=== PATIENT | female | born 1990 | race Caucasian/White ===

== ENCOUNTER 2023-10-28 17:45 | Outpatient (REF) | payer OTHER, SELFPAY ==
--- NOTE | 2023-10-28 12:45 | SKI_PTH ---
PATIENT: Shelli De La Torre LOC: [facility] U#:[id number] AGE/SX: 33/F ROOM: RE10/28/[address]: MONSERRAT SCHAEFER : 1990 BED: DIS: 10/28/2023 SPEC #: [id number] RECD: 10/28/23 18:19 STATUS: SEVERIANO REQ #: [id number] FABBY: 10/28/23 12:[address]: MONSERRAT SCHAEFER DEPT: Surgical Specimen RECD BY: Connie Sandoval ENTERED: 10/28/23 18:20 SP TYPE: CHETAN HENDRICKSON DR: Unknown,Unknown Tissues: 1 - SKIN BIOPSY(SHAVE/PUNCH) Procedures: SKIN LEVEL 4 Comments: [id number]
== END 2023-10-28 17:46 | disposition home or self-care (01) ==
LOC: LBN 17:45
PROVIDERS: Visit Provider Nurse Practitioner Family
DX: L98.0 Pyogenic granuloma
CPT/HCPCS: 88305

== ENCOUNTER 2023-11-24 02:06 | Emergency (ER) | payer OTHER, SELFPAY ==
[2023-11-24 02:09] VITALS: O2SAT 98
--- NOTE | 2023-11-24 02:09 | ED.GENADUL_ITS ---
Discharge Plan Disposition Patient Disposition: Home Condition: Good Discharge Details Clinical Impression: Abscess of genital labia Primary Care Provider: Unknown,Unknown ED Provider: Chaz Reinoso Meds and New Rx's Prescriptions: No Action .Route omega 5-gos-jyr-fish oil [Fish Oil] 1,000 mg (120 mg-180 mg) capsule 1 cap PO DAILY cholecalciferol (vitamin D3) [Vitamin D3] 125 mcg (5,000 unit) tablet 5,000 unit PO DAILY Discharge Instructions Instructions: Abscess Incision and Drainage ED Additional Instructions: You were seen for pain and swelling and found to have an abscess which has been drained by allied health instructor. Follow up with Dr. Wolfe on Saturday as scheduled. Sitz baths, acetaminophen or ibuprofen for pain. Return to ED for severe worsening pain, fever, other concerns. Referrals: Sarina Wolfe MD [ [facility] STAFF PHYSICIAN] - 3 days HPI General Mode of arrival: ambulatory . Date/Time Provider Initiated Documentation: 11/24/23 02:07 . Limitations to Documentation: no limitations . Information obtained by: patient and family () . HPI Narrative: Patient presents to ED with a painful swelling in the vaginal area status post vaginal delivery on 11/13. Patient had a home delivery which was uncomplicated on the . was uncomplicated. Plsql Developer was present for delivery but was pretty much hands of according to patient and . Patient began to notice some swelling after the delivery. She has subsequently been seen by her bessemer converter operator twice with no definite etiology elicited. She has been alternating acetaminophen with ibuprofen for pain. Swelling has become painful, red and larger in the last 24 to 36 hours. She has not been having any difficulty urinating. She is not having any heavy vaginal discharge or bleeding. Tonight began to have some dysuria for the first time. Denies abdominal pain or back pain. Denies fever or chills. Otherwise feels well. Related Data Home Medications ?Medication ?Instructions ?Recorded ?Confirmed .Route 11/24/23 cholecalciferol (vitamin D3) 125 5,000 unit PO DAILY 11/24/23 11/24/23 mcg (5,000 unit) tablet (Vitamin D3) omega 0-xvb-pny-fish oil 1,000 mg 1 cap PO DAILY 11/24/23 11/24/23 (120 mg-180 mg) capsule (Fish Oil) Allergies Allergy/AdvReac Type Severity Reaction Status Date / Time Penicillins Allergy Mild rash Verified 11/24/23 02:18 Review of Systems Narrative: Per HPI Exam Narrative Exam Narrative: Const: WDWN female in NAD. VS per triage. HEENT: NC/AT. Normal facial exam. Neck: Supple. Trachea midline. Lungs: Normal respiratory effort. : External genitalia exam performed, present in the room. Patient has about a 1 cm erythematous and tender swelling involving the right lateral lobe superiorly. It extends somewhat down into the superior portion of the right labia minora. The urethral opening is normal but pushed to the left. Vaginal opening appears normal with no visible discharge. Neuro: A+O x 3. Normal speech, mentation, gait. Cranial nerves II - XII grossly intact. No gross motor or sensory deficit. Ext: No C/C/E. Medical Decision Making Patient presenting to ED with an enlarging, painful, erythematous swelling involving the right clitoral howe and superior labia minora. This began shortly after giving vaginally on the . was not traumatic in nature and there was no episiotomy or tearing involved. Began having dysuria but continues to have no difficulty urinating tonight. She otherwise feels well. Case discussed with OB, Dr. Wolfe. Unclear etiology of findings given the location. Consider abscess versus hematoma. Discussed with patient and . Will proceed with CT of the pelvis with IV contrast to help delineate etiology. CBC, BMP, UA sent. 04:30 - Received call from radiology regarding CT which does show a 2 cm right clitoral howe abscess with surrounding cellulitis. She is also noted to have complex fluid distention in the endometrial cavity. She has a normal white count and no fever. She has no pelvic pain and no foul-smelling vaginal discharge. Case rediscussed with OB. Patient to be seen in the ED for potential I&D of abscess. Discussed findings with patient and . 05:45 - Patient seen by Dr. Wolfe. I&D performed with drainage of pus. No antibiotic at this time. Patient will follow up with allied health instructor on Saturday. Return precautions discussed. Lab Data Lab results reviewed: Yes I reviewed the patient's lab results. PFSH All Active Problems (Updated 11/24/23 @ 05:45 by Chaz Reinoso MD) Abscess of genital labia (Acute) Medical History No significant past medical history Social History Smoking risk assessment performed?: No Alcohol Intake: never Drug use: Never History History Para 4 Hx # Term Pregnancies 4 Multiple births Hx # Pregnancies Ectopic pregnancies AB induced Hx Number of Living Children 4 AB spontaneous
[2023-11-24 02:10] VITALS: BP 135/102; BP 182/106; PULSE 74; PULSE 81; RESP 14; TEMP 36.9; O2SAT 96; O2SAT 98
[2023-11-24 02:11] VITALS: O2SAT 99
[2023-11-24 02:17] VITALS: BP 135/102; BP 182/106; PULSE 70; PULSE 85; RESP 16; TEMP 36.8; O2SAT 99
[2023-11-24 02:20] VITALS: O2SAT 98
--- NOTE | 2023-11-24 02:43 | DI.CT_ITS ---
Exam(s) CT PELVIC W EXAM: CT PELVIC W CLINICAL HISTORY: increase pain and swelling R clitoral howe. TECHNIQUE: Imaging Protocol: Axial computed tomography images with coronal and sagittal reformatted images were created and reviewed. CONTRAST MATERIAL: Intravenous: Omnipaque 350 Contrast volume:100 ml Contrast route:IV - Oral: no COMPARISON: No exams were available for comparison FINDINGS: Exam limited by motion, mostly on the upper images. Bladder: No gross wall thickening. No stones.No evidence of mass. Bowel: No obstruction or bowel wall thickening. Appendix normal. Peritoneal cavity: No ascites, collection or mesenteric inflammatory response. Reproductive: Uterus is enlarged, measuring roughly 13 cm in length by 9.5 cm cephalo caudad by 12 cm transverse. There is thickening of the endometrium up to 3 cm. No abnormal gas is seen. The avila of the uterus appears somewhat low in attenuation. Findings could in the represent endometritis, bl ood products or possibly retained products of conception. The ovaries appear normal. Bones: No acute findings. Soft tissues: 2 centimeter low-density collection with peripheral enhancement consistent with absces s located in the region of the right clitoral howe. IMPRESSION: 2 centimeter abscess right clitoral howe. Enlarged uterus with markedly thickened endometrium could indicate retained blood products/retained p roducts of conception versus endometritis. RADIATION DOSE DELIVERED: Total DLP DATA REPOSITORY: All CT scans at this facility are submitted to the National Radiology Data Registry (NRDR) Dose Index Registry (DIR) with the [employer] (ACR). RADIATION OPTIMIZATION: All CT scans at this facility use at least one of these dose optimization te chniques: automated exposure control; mA and/or kV adjustment per patient size (includes targeted exa ms where dose is matched to clinical indication); or iterative reconstruction.
[2023-11-24] MEDS: Normal Saline - Diluent 50 ML VIAL IJ (02:56)
[2023-11-24] MEDS: Omnipaque 350 MG/ML 100 ML BTL IJ (02:57)
[2023-11-24 03:05] LABS: Anion Gap 6.3 mmol/L (3-11); BUN 16 mg/dL (7-18); CO2 29.7 mmol/L (21.0-32.0); CREATININE 0.6 mg/dL (0.55-1.02); Calcium 9.1 mg/dL (8.5-10.1); Chloride 104 mmol/L (98-107); Estimated GFR 122.99 (mL/min/1.73m2); Glucose 94 mg/dL (74-106); Potassium 4.4 mmol/L (3.5-5.1); Sodium 140 mmol/L (136-145)
[2023-11-24 03:10] LABS: Abs Immature Grans 0.04 10^3/uL (0.0-0.06); Absolute Basophil Count 0.08 10^3/uL (0.0-0.2); Absolute Eosinophil Count 0.16 10^3/uL (0.0-0.7); Absolute Lymphocyte Count 2.63 10^3/uL (1.2-3.4); Absolute Monocyte Count 0.97 10^3/uL (0.1-0.8); Absolute Neutrophil Count 4.81 10^3/uL (1.2-6.7); Basophils % 0.9 %; Eosinophils % 1.8 %; HCT 40.9 % (36.0-46.0); HGB 13.4 g/dL (11.2-15.7); Immature Grans % 0.5 %; Lymphocytes % 30.3 %; MCH 31.2 pg (27.0-33.0); MCHC 32.8 % (32.0-36.0); MCV 95 fL (80-95); Monocytes % 11.2 %; Neutrophils % 55.3 %; Platelet Count 493 10^3/uL (130-400); RDW 12.9 % (11.7-14.6); RDW-SD 45.7 fL; WBC 8.69 10^3/uL (4.4-10.8)
--- NOTE | 2023-11-24 04:16 | DI.VRAD_ITS ---
Addendum created by Dwaine Sandoval MD on 11/24/2023 4:19:16 AM EDT: Findings discussed with NAOMI VALERIO MD at time of interpretation. Initial report created on 11/24/2023 4:16:25 AM EDT: PROCEDURE INFORMATION: Exam: CT Pelvis With Contrast Exam date and time: 11/24/2023 2:54 AM Age: 33 years old Clinical indication: Condition or disease; Other: Increase pain and swelling R clitoral howe; Patient HX: Gave on november TECHNIQUE: Imaging protocol: Computed tomography of the pelvis with contrast. Contrast material: 350; Contrast volume: 100 ml; Contrast route: INTRAVENOUS (IV); COMPARISON: US OB 2-3 TRIMESTER 07/12/2023 8:44 AM FINDINGS: Intestine: Visualized small and large intestine are unremarkable. Appendix: No evidence of appendicitis. Intraperitoneal space: Unremarkable. No free air. No significant fluid collection. Lymph nodes: Unremarkable. No enlarged lymph nodes. Reproductive: There is diffuse complex/heterogeneous fluid distension of the endometrial cavity up to 2.9 cm in AP dimension. This could be partially liquified blood products or purulence material/abscess. Retained products of conception not excluded. Ultrasound can be performed for further evaluation if clinically warranted. Urinary bladder: Normal. No mass. Bones/joints: Unremarkable. No acute fracture. No dislocation. Soft tissues: 2 cm rim enhancing abscess with surrounding cellulitis at the indicated it location of the howe of the clitoris. No soft tissue gas. IMPRESSION: 1. 2 cm rim enhancing abscess with surrounding cellulitis at the indicated it location of the howe of the clitoris. No soft tissue gas. 2. There is diffuse complex/heterogeneous fluid distension of the endometrial cavity up to 2.9 cm in AP dimension. This could be partially liquified blood products or purulence material/abscess. Retained products of conception not excluded. Ultrasound can be performed for further evaluation if clinically warranted. Dictated and Authenticated by: Dwaine Sandoval MD. Ordering:OLAMIDE Ware MD
[2023-11-24 04:17] LABS: Bilirubin Negative (Negative); Blood Negative (Negative); Clarity Clear (Clear); Glucose Negative (Negative); Ketones Negative (Negative); Leukocyte Esterase Negative (Negative); Nitrite Negative (Negative); Specific Gravity <= 1.005 (1.005-1.025); Urobilinogen 0.2 mg/dL (Up to 0.2)
--- NOTE | 2023-11-24 05:43 | GCONE_ITS ---
Date of service: 11/24/23 Time of Service: 05:43 Assessment and Plan Assessment and plan (1) Abscess of genital labia: Status: Acute Assessment and plan: Abscess drained successfully. Pt strongly prefers to avoid abx as she has had a bad GI reaction previously. She will do sitz baths BID and keep an eye on it and call if there is any increase in swelling, redness or pain. She will f/u at [facility] on Saturday for me to look at it. History of Present Illness Narrative: Pt is a P4 who comes to the ED today due to increasing pain and a lump near her clitoris. She is 10 days s/p NVD at home with a item processing clerk. She denies any complications or tears at the time of delivery. In general she is doing well . She no longer has any significant bleeding. She says she first noticed slight pain in the area about a week ago and it slowly enlarged getting significantly worse yesterday and causing pain with urination. She has not noticed any bleeding or drainage. She has never had anything like this previously. Review of Systems Genitourinary Genitourinary: Reports system reviewed and no additional complaints, except as documented PFSH All Active Problems (Updated 11/24/23 @ 05:45 by Chaz Reinoso MD) Abscess of genital labia (Acute) Medical History No significant past medical history Social History Smoking risk assessment performed?: No Alcohol Intake: never Drug use: Never History History 2 Para 4 Hx # Term Pregnancies 4 Multiple births Hx # Pregnancies Ectopic pregnancies AB induced Hx Number of Living Children 4 AB spontaneous Exam Const General: cooperative, healthy appearing and no acute distress [facility] Head: normocephalic and atraumatic Ears: hearing grossly normal bilaterally Resp Effort & Inspection: normal respiratory effort and able to speak in complete sentences External Female Exam: normal appearance of the urethra Other: Normal appearing labia with a palpable tender mass under the right clitoral howe and slightly enlarging the upper left labia minora. Procedure: Incision and drainage The area was clensed with betadyne and injected with a very small amount of lidocaine with epinephrine. An 11 blade was used to make an incision with immediate return of pus from the incision. The abscess was slowly drained with a small amount of lidocaine added to allow for enlargement of the incision. The cavity was then flushed until minimal pus was noted in the fluid. The patient tolerated the procedure very well for such a sensitive area. Neuro General: patient alert and patient awake Psych Appearance: grossly normal Mental Status: mental status grossly normal Speech and Movement: speech and movement normal Affect: normal affect Attitude: cooperative Thought Process: normal Thought Content: normal Results Last Vital Signs Temp 98.3 F 11/24/23 02:17 Pulse 70 11/24/23 02:17 Resp 16 11/24/23 02:17 BP 135/102 H 11/24/23 02:17 Pulse Ox 98 11/24/23 02:20 Labs 11/24/23 02:51 11/24/23 02:51 Labs: Laboratory Results - last 24 hr 11/24/23 11/24/23 02:51 04:08 WBC 8.69 RBC 4.30 Hgb 13.4 Hct 40.9 MCV 95 MCH 31.2 MCHC 32.8 RDW 12.9 Plt Count 493 H MPV 9.0 Immature Gran % 0.5 Neutrophils % 55.3 Lymphocytes % 30.3 Monocytes % 11.2 Eosinophils % 1.8 Basophils % 0.9 Nucleated RBC % 0.0 Absolute Neutrophils 4.81 Absolute Lymphocytes 2.63 Absolute Monocytes 0.97 H Absolute Eosinophils 0.16 Absolute Basophils 0.08 Sodium 140 Potassium 4.4 Chloride 104 Carbon Dioxide 29.7 Anion Gap 6.3 BUN 16 Creatinine 0.6 Est GFR (CKD-EPI 2020) 122.99 Glucose 94 Calcium 9.1 Urine Color Yellow Urine Clarity Clear Urine pH 6.0 Ur Specific High View <= 1.005 Urine Protein Negative Urine Ketones Negative Urine Blood Negative Urine Nitrite Negative Urine Bilirubin Negative Urine Urobilinogen 0.2 Ur Leukocyte Esterase Negative Urine Glucose Negative Imaging CT scan - pelvis: report reviewed (2cm rim-enhancing abscess)
[2023-11-24 05:50] VITALS: BP 108/75; PULSE 62; RESP 17; TEMP 36.7; O2SAT 98
== END 2023-11-24 05:50 | disposition home or self-care (01) ==
PROVIDERS: Emergency Provider Emergency Medicine
DX: N76.4 Abscess of vulva (principal); O86.19 Other infection of genital tract following delivery
CPT/HCPCS: 56405; 80048; 99285; 72193; 81003; 85025; 99283; J3490